=== PATIENT | male | born 1960 | race Caucasian/White ===

== ENCOUNTER 2024-04-05 20:24 | Emergency (ER) | payer MEDICARE ==
[~2024-04-05] VITALS: Ht 190.5 cm; Wt 124.7 kg
[2024-04-05] MEDS ORDERED: TYLENOL325 MG PO (22:10)
[2024-04-05] MEDS ORDERED: LEVOFLOXACIN250 MG PO (22:10)
[2024-04-05] MEDS ORDERED: DIPHENHYDRAMINE25 M2 PO (22:10)
[2024-04-05] MEDS ORDERED: VENTOLIN HFA18 GM INH (22:10)
[2024-04-05] MEDS: METHYLPREDNISOLONE SOD SUCC 125 MG/2ML VIAL IV ONE (22:13)
[2024-04-05] MEDS: ACETAMINOPHEN 325 MG TAB PO ONE (22:13)
[2024-04-05] MEDS: KETOROLAC TROMETHAMINE 30 MG/ML VIAL IV ONE (22:13)
[2024-04-05 23:09] VITALS: BP 144/85
[2024-04-05 23:10] VITALS: PULSE 67; RESP 18; TEMP 98.6; O2SAT 94
== END 2024-04-05 23:12 | disposition home or self-care (01) ==
LOC: FSED 20:30
DX: R05.9 Cough, unspecified (principal); J06.9 Acute upper respiratory infection, unspecified; J40 Bronchitis, not specified as acute or chronic; J43.9 Emphysema, unspecified; I10 Essential (primary) hypertension; E78.5 Hyperlipidemia, unspecified; F32.A Depression, unspecified; F17.210 Nicotine dependence, cigarettes, uncomplicated
CPT/HCPCS: 71250; 99284; J0696; J1885; J2919